=== PATIENT | male | born 1950 | race Two or more races ===

== ENCOUNTER 2020-06-06 15:34 | Emergency (ER) | payer OTHER, SELFPAY ==
[~2020-06-06] VITALS: Ht 167.6 cm; Wt 94.6 kg
--- NOTE | 2020-06-06 16:32 | NUR ---
PT IS A SLOV[place] SPEAKING 69M WITH COMPLAINTS OF BILATERAL LEG PAIN FROM THE HIPS DOWN TO HIS TOES THAT HE DESCRIBES INTERMITTANT SHOOTING PAINS X 7 MONTHS. HE ALSO COMPLAINS OF BILATERAL INTERMITTANT ARM PAIN X 7 MONTHS. HE DENIES ALL MEDICATIONS, MEDICAL HISTORIES, AND ALLERGIES. HE HAS NOT BEEN TO THE DR BECAUSE OF COVID. 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 SP02, AND BP MONITORS IN PLACE. CALL LIGHT WITHIN REACH.
[2020-06-06 17:51] LABS: BASOPHILS % (AUTO) 1 % (0-1); EOSINOPHILS % (AUTO) 0 % (1-7); LYMPHOCYTES % (AUTO) 28 % (22-44); MEAN CORPUSCULAR HEMOGLOBIN 31.1 pg (27.5-34.5); MEAN PLATELET VOLUME 8.8 fL (7.4-10.4); MONOCYTES % (AUTO) 7 % (2-9); NEUTROPHILS % (AUTO) 64 % (42-75); PLATELET COUNT 304 x10^3/uL (130-400); RED BLOOD COUNT 4.56 x10^6/uL (4.38-5.82); RED CELL DISTRIBUTION WIDTH 13.7 % (9.4-14.8)
[2020-06-06 17:59] LABS: MD NO
[2020-06-06 18:00] LABS: ALBUMIN 3.1 g/dL (3.4-5.0); CALCIUM 7.7 mg/dL (8.5-10.1)
[2020-06-06 18:06] LABS: ALANINE AMINOTRANSFERASE 25 U/L (12-78); ALKALINE PHOSPHATASE 120 U/L (45-117); ANION GAP 6 mmol/L (5-15); BILIRUBIN,TOTAL 0.4 mg/dL (0.2-1.0); CHLORIDE 107 mmol/L (98-107); CREATININE 0.82 mg/dL (0.7-1.3); TOTAL PROTEIN 6.8 g/dL (6.4-8.2)
[2020-06-06 18:15] VITALS: BP 181/83
--- NOTE | 2020-06-06 18:16 | NUR ---
PT IS RESTING COMFORTABLY TALKING ON HIS CELL PHONE AWAITING U/S. CALL LIGHT WITHIN REACH.
--- NOTE | 2020-06-06 18:46 | NUR ---
REPORT FROM [facility], TRANSFER OF CARE AT THIS TIME
--- NOTE | 2020-06-06 19:06 | NUR ---
Patient/Caregiver given discharge instructions and they have confirmed that they understand the instructions. Patient ambulatory with steady gait.
== END 2020-06-06 19:14 | disposition home or self-care (01) ==
LOC: ED 19:00
DX: I83.12 Varicose veins of left lower extremity with inflammation (principal); I83.11 Varicose veins of right lower extremity with inflammation; E87.6 Hypokalemia; M79.662 Pain in left lower leg; G89.29 Other chronic pain; M79.661 Pain in right lower leg
CPT/HCPCS: 36415; 80053; 85025; 93970; 99284